=== PATIENT | male | born 1945 | race Caucasian/White ===

== ENCOUNTER → 2016-08-13 | Outpatient (CLI) | payer MEDICARE | END | disposition home or self-care (01) | LOC: LABPAT 15:11 | PROVIDERS: ATTEND Orthopaedic Surgery | DX: Z01.818 Encounter for other preprocedural examination (principal) | CPT/HCPCS: 86850; 86900; 86901; 87070 ==

== ENCOUNTER 2016-08-21 05:53 | Inpatient (IN) | payer MEDICARE ==
[~2016-08-21 05:53] MED LIST: ACETAMINOPHEN TAB 500 MG TAB PO ONE; DEXAMETHASONE SOD PHOSPHATE 10 MG/ML 1 ML VIAL IV ONE; HYDROmorphone 1 MG/ML 1 ML SYRINGE IVP PRN; LACTATED RINGERS 1,000 ML IV SCH; LIDOCAINE 1% 20 ML VIAL (10MG/ML) FOR IV START INTRADERMA PRN; MELOXICAM 7.5 MG TAB PO ONE; MIDAZOLAM 2 MG/2 ML VIAL IV PRN; ONDANSETRON 4 MG/2 ML VIAL IVP ONE; SCOPOLAMINE 1.5MG/72HR PATCH TRANSDERM ONE; TRANEXAMIC ACID 1,000 MG in SODIUM CHLORIDE 0.9% 100 ML IVPB ONE; ceFAZolin 2 GM in SODIUM CHLORIDE 0.9% 100 ML IVPB ONE
[2016-08-21] MEDS ORDERED: PROPOFOL 10 MG/ML 20 ML VIAL IV ONE (07:20)
[2016-08-21] MEDS ORDERED: SODIUM CHLORIDE 0.9% IRRIG 1,000 ML BTL IRRIGATION ONE (07:20)
[2016-08-21] MEDS ORDERED: PHENYLEPHRINE-0.9% NACL SYG 1 MG/10 ML SYRINGE ONE (07:20)
[2016-08-21] MEDS ORDERED: TRANEXAMIC ACID 1,000 MG/10 ML VIAL ONE (07:20)
[2016-08-21] MEDS ORDERED: HEPARIN SODIUM,PORCINE 10,000 UNIT/ML 1 ML VIAL ONE (07:20)
[2016-08-21] MEDS ORDERED: fentaNYL (PF) 50 MCG/ML 2 ML AMP ONE (07:20)
[2016-08-21] MEDS ORDERED: MIDAZOLAM 2 MG/2 ML VIAL ONE (07:20)
[2016-08-21] MEDS ORDERED: SODIUM CHLORIDE 0.9% 100 ML BAG ONE (07:20)
[2016-08-21] MEDS ORDERED: ceFAZolin 3,000 MG in SODIUM CHLORIDE 0.9% IRRIGATIO 3,000 ML IRRIGATION ONE (07:26)
[2016-08-21] MEDS: ROPIVACAINE 246.25 MG, EPINEPHrine 0.5 MG, KETOROLAC 30 MG, cloNIDine HCL/PF 80 MCG, WA... MISCELLANE ONE ×10 (07:56→08:49)
[2016-08-21] MEDS ORDERED: LACTATED RINGERS 1,000 ML IV ONE (08:00)
--- NOTE | 2016-08-21 09:03 | FL ---
Fluoroscopy History: Left total hip 15 seconds of fluoroscopic time and 3 films are submited for Left hip replacement.
--- NOTE | 2016-08-21 09:16 | P.OP ---
Date of Procedure: 08/21/16 Preoperative Diagnosis: Severe osteoarthritis left hip Postoperative Diagnosis: Severe osteoarthritis left hip Procedure(s) Performed: Left total hip arthroplasty with a direct anterior approach Implants: Mansfield and nephew Polarstem size 6 standard [employer]hew R3, 3 hole acetabular shell, 54 mm [employer]hew reflection 6.5 mm cancellus screw, 20 mm 2 [employer]hew R3, XLPE 20 acetabular liner [employer]hew Oxinium femoral head 36 m, +0 All components were press-fit. The articulation is ceramic on polyethylene. Anesthesia: spinal Surgeon: Yair Stern General I Farmworker #1: Maria Dolores Marin Estimated Blood Loss (ml): 250 (130 mL returned with Cell Saver) Pathology: other (Femoral head) Condition: stable Disposition: PACU Indications for Procedure: After failure of conservative treatment we discussed the surgical and nonsurgical treatment options at length. Patient wishes to proceed with a total hip arthroplasty with a direct anterior approach. Complications specific to this procedure were discussed at length, including but not limited to infection, leg length discrepancy, dislocation, and nerve injury. Patient is aware of all these complications and informed consent was obtained Operative Findings: The operative findings consistent with severe osteoarthritis of the left hip Description of Procedure: Patient was seen and evaluated in the preoperative area, consent was reviewed, and the surgical site was marked with a skin marker. Patient was then brought to the operating room and given prophylactic antibiotics intravenously. 1 g of Tranexamic acid was also given. A spinal anesthetic was administered by the anesthesia department. The patient was then placed on the hana table with the bony prominences well-padded. The hip area was then prepped and draped in usual sterile fashion. A universal timeout was then performed, which confirmed the patient's name, surgical site, ALLERGIES, and procedure being performed. Next the incision site was located at 1 cm distal and 1 cm lateral to the anterior superior iliac spine. The skin and subcutaneous tissues were sharply incised. Incision was carefully dissected down to the fascia overlying the tensor fascia dimple muscle. This fascia was then incised in line with the incision. Next, using blunt finger dissection, the tensor fascia dimple muscle was dissected off its investing fascia. The muscle was then carefully retracted laterally with a cobra retractor over the lateral neck of the femur. Next, the circumflex vessels were identified and cauterized using the AquaMantis device. The anterior hip capsule was then exposed. The capsule was then opened and an inverted T fashion. Retention sutures were placed in the inferior arms of the capsule. Cobra retractors were then placed intracapsularly. The proximal femur was then visualized. The femoral neck was then osteotomized appropriate level above the lesser trochanter. Small amount of traction was placed with the hand table. A small wedge of bone was then removed from the remaining femoral head. Next, using a corkscrew femoral head was easily removed from the acetabulum. On gross visual inspection, the femoral head had complete loss of articular cartilage in multiple periarticular osteophytes. Attention was then turned to the acetabulum. the acetabulum was exposed and any remaining labrum was excised. Sequential reaming of the acetabulum was performed using fluoroscopic guidance. When the appropriate size was reached, a trial was then placed. The position and fit of the trial was checked with fluoroscopy. The trial was then removed. Then, using fluoroscopic guidance, the final implant was impacted at 20 of anteversion and 40 of abduction, and fully seated in the acetabulum. 2 screws were then placed in the acetabulum. Again fluoroscopy was used to check position of the screws. Next, the liner was then impacted, with a 20 elevated liner located in the anterior superior quadrant. Component locking was confirmed. Attention was then directed to the femur. With the aid of the Megan table, the femur was externally rotated to approximately 130, extended, and abducted under the opposite leg. A side hook was then placed under the proximal femur, and the side hook elevator was used to elevate the proximal femur. Retractors were then placed. A capsular release was performed, as well as a release of the conjoined tendon, which afforded excellent visualization of the proximal femur. Next, a box osteotome was used to lateralize the proximal femur. A material handling supervisor was then used to locate the femoral canal. Sequential broaching was then performed with appropriate size which afforded excellent fixation in the proximal femur. The calcar was then planed. A trial was then placed with appropriate head and neck, and the hip was gently reduced with the aid of the Megan table. Fluoroscopy was then used to check position of the components, as well as to ensure equal leg lengths. The hip was then gently dislocated and the trials were then removed. Final implants were then impacted and the hip was again reduced. Final fluoroscopic x-rays confirmed that the components were in anatomic position, as well as equal leg lengths. The hip was also taken through range of motion, and found to be stable. The hip was then copiously irrigated with antibiotic solution with pulsatile lavage. The hip was then irrigated with Irrisept solution. The soft tissues were then injected with ropivacaine solution. A second dose of 1 g of Tranexamic acid was given. the fascia was then closed with 2-0 strata fix suture. The subcutaneous tissue was closed with 3-0 Vicryl. The subcuticular tissue was closed with 30 strata fix suture. The skin was then closed with Dermabond tape. The patient was then transferred to the recovery room in stable condition. The Asst. Maria Dolores Marin was required due to the complexity of surgery, and the need for skilled surgical supplies sterilizer for positioning, draping, exposure, retraction, and closure of the wound.and closure of the wound.
[2016-08-21] MEDS ORDERED: ONDANSETRON 4 MG/2 ML VIAL IVP PRN (09:23)
[2016-08-21] MEDS ORDERED: HYDROcodone/APAP 5-325MG 1 EACH TAB PO PRN (09:23)
[2016-08-21] MEDS ORDERED: HYDROmorphone 1 MG/ML 1 ML SYRINGE IVP PRN ×3 (09:23)
[2016-08-21] MEDS ORDERED: NALOXONE 0.4 MG/ML 1 ML VIAL IV PRN (09:23)
[2016-08-21] MEDS ORDERED: DIAZEPAM 5 MG TAB PO PRN ×2 (09:23)
[2016-08-21] MEDS ORDERED: hydrOXYzine PAMOATE 25 MG CAP PO PRN (09:23)
[2016-08-21] MEDS ORDERED: MAGNESIUM HYDROXIDE 2,400 MG/10 ML CUP PO PRN (09:23)
--- NOTE | 2016-08-21 09:42 | XR ---
EXAMINATION TYPE: XR Hip Limited LT DATE OF EXAM: 08/21/2016 9:38 AM CLINICAL HISTORY: Postoperative evaluation TECHNIQUE: Single portable view of the left hip was submitted. FINDINGS: Noted are changes of total hip arthroplasty with femoral and acetabular components appearin g well seated. Alignment is anatomic. Postsurgical soft tissue changes are evident. IMPRESSION: Satisfactory postoperative alignment
[2016-08-21] MEDS ORDERED: ALBUMIN HUMAN 5% 250 ML in EMPTY BAG 1 BAG IVPB STA (09:54)
[2016-08-21] MEDS: SODIUM CHLORIDE 0.9% 1,000 ML IV SCH ×2 (12:23→21:44)
[2016-08-21] MEDS: ceFAZolin 2 GM in SODIUM CHLORIDE 0.9% 100 ML IVPB SCH (15:51)
--- NOTE | 2016-08-21 18:18 | CONS ---
DATE OF CONSULTATION: 08/21/2016 REASON FOR CONSULTATION: Medical management requested by Dr. Stern. HOSPITAL COURSE: This pleasant 70-year-old patient of Dr. Guzman has undergone a left total hip arthroplasty. Patient in chronic stable medical conditions include hyperlipidemia, benign prostatic hypertrophy, and basal cell skin cancer in the past. Post procedure patient is comfortable. No chest pain, shortness of breath, nausea, vomiting, and no cardiac history. REVIEW OF SYSTEMS: CONSTITUTIONAL: None. HEENT: None. RESPIRATORY: None. CARDIOVASCULAR: None. GASTROINTESTINAL: None. GENITOURINARY: Benign prostatic hypertrophy symptoms. DERMATOLOGICAL: None. HEMATOLOGICAL: None. LYMPHATIC: None. PSYCHIATRY: None. NEUROLOGICAL: None. Past medical history of hyperlipidemia, prostate disorder, hyperlipidemia, basal cell cancer, osteoarthritis. PAST SURGICAL HISTORY: Bilateral shoulder surgery. 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 Never smoked. Alcohol occasionally. FAMILY HISTORY: Mother had multiple strokes. HOME MEDICATIONS: 1. Saw [place] 500 mg p.o. daily. 2. Fish oil 1000 mg p.o. daily. 3. Glucosamine chondroitin 1 tablet p.o. daily. 4. [place]-3 flaxseed oil 1 tablet p.o. daily. 5. Cinnamon 500 mg p.o. daily. 6. Vitamin D3 400 units p.o. daily. 7. Aspirin 81 mg p.o. daily. 8. Vitamin C 1000 mg p.o. daily. ALLERGIES: None. On examination, temperature 97.7, pulse 59, respirations 16, blood pressure 101/61, pulse ox 98% on room air. GENERAL APPEARANCE: Well built, BMI of 30.4, sitting up, comfortable. EYES: Pupils equal. Conjunctiva normal. HEENT: External appearance of nose and ears normal. NECK: JVD not raised. Mass not palpable. RESPIRATORY: Effort normal. LUNGS: Clear. CARDIOVASCULAR: First and second sounds normal. No edema. ABDOMEN: Soft. Liver and spleen not palpable. LYMPHATIC: No lymph node in the neck or axillae. PSYCHIATRY: Alert and oriented x3. Mood and affect normal. INVESTIGATIONS: No blood work from today. ASSESSMENT: 1. Left total hip arthroplasty. 2. Hyperlipidemia. 3. Benign prostatic hypertrophy. 4. Obesity, body mass index of 30.4. PLAN: Home medications are resumed. For DVT prophylaxis the patient is on aspirin lasted to ( ) b.i.d. Pain control is present. Patient should see a dietitian for weight loss or follow with family doctor. Care was discussed with the patient. Thank you, Dr. Stern.
[2016-08-21] MEDS: ASPIRIN 325 MG TAB PO SCH (20:20)
[2016-08-21] MEDS ORDERED: SENNOSIDES-DOCUSATE SODIUM 1 EACH TAB PO SCH (21:00)
[2016-08-22] MEDS: ceFAZolin 2 GM in SODIUM CHLORIDE 0.9% 100 ML IVPB SCH ×2
[2016-08-22 03:00] VITALS: TEMP 98.5
[2016-08-22 07:28] LABS: Basophils % (A) 0 %; CH 31.5; CHCM 33.9; Eosinophils % (A) 0 %; HCT 38.7 % (39.0-53.0); HDW 2.65; HGB 12.8 gm/dL (13.0-17.5); Luc # (Auto) 0.21; Luc % (Auto) 3; Lymphocytes # (A) 1.4 k/uL (1.0-4.8); Lymphocytes % (A) 19 %; MCH 30.8 pg (25.0-35.0); MCHC 33.1 g/dL (31.0-37.0); MCV 93.3 fL (80.0-100.0); Mean Platelet Volume 7.9; Monocytes # (A) 0.6 k/uL (0-1.0); Monocytes % (A) 8 %; Neutrophils # (A) 5.1 k/uL (1.3-7.7); Neutrophils % (A) 70 %; RBC 4.15 m/uL (4.30-5.90); RDW 13.2 % (11.5-15.5); WBC 7.3 k/uL (3.8-10.6); WBC (Perox) 7.77
[2016-08-22] MEDS: ASPIRIN 325 MG TAB PO SCH (08:04)
[2016-08-22] MEDS: HYDROcodone/APAP 5-325MG 1 EACH TAB PO PRN ×2 (08:05→13:24)
[2016-08-22 08:08] VITALS: BP 101/64; PULSE 93; RESP 18
[2016-08-22] MEDS ORDERED: MELOXICAM 7.5 MG TAB PO SCH (09:00)
--- NOTE | 2016-08-22 09:40 | P.DS ---
Providers Date of admission: 08/21/16 05:53 Expected date of discharge: 08/22/16 Attending physician: Yair Stern Consults: 08/21/16 09:23 Consult Physician Routine Consulting Provider: Ronal Guzman Consult Reason/Comments: medical management Do you want consulting provider notified?: Yes 08/21/16 10:33 Consult Physician Routine Consulting Provider: Jas Butler Consult Reason/Comments: medical managment Do you want consulting provider notified?: Yes Primary care physician: Ronal Guzman - Discharge Diagnosis(es) (1) Primary localized osteoarthritis of left hip Current Visit: Yes Status: Acute (2) Status post left hip replacement Current Visit: Yes Status: Acute Hospital Course: This is a pleasant 70-year-old gentleman who is status post left total hip arthroplasty. The patient was last seen in our office with known history of osteoarthritis of the left hip. After discussion consideration the patient elected to proceed with left total hip arthroplasty. The patient was seen preoperatively medically cleared for surgery by his primary care physician. The patient was seen and evaluated at bedside this morning. His pain is well- controlled. He's been up walking with physical therapy. He has no complaints this time. No lightheadedness or shortness of breath. He does not appear in acute distress. He is alert and orientated 3. Vital signs are stable. Dressing is clean dry and intact. Thigh and calf are soft and nontender. He has sustained dorsiflexion plantar flexion extensor hallux longus. Sensation and circulatory status is intact. The patient is alert medically stable for discharge to home today with home care if he does well with therapy this afternoon. Pertinent Studies: Laboratory Tests 08/22/16 07:10 WBC 7.3 RBC 4.15 L Hgb 12.8 L Hct 38.7 L MCV 93.3 MCH 30.8 MCHC 33.1 RDW 13.2 Plt Count 163 Neutrophils % 70 Lymphocytes % 19 Monocytes % 8 Eosinophils % 0 Basophils % 0 Neutrophils # 5.1 Lymphocytes # 1.4 Monocytes # 0.6 Eosinophils # 0.0 Basophils # 0.0 Patient Condition at Discharge: Good Plan - Discharge Summary New Discharge Prescriptions: Aspirin EC [Ecotrin] 325 mg PO BID #60 tablet. Hydrocodone/Acetaminophen [[place] 5-325] 1 - 2 each PO Q6HR PRN #90 tab PRN Reason: Pain Sennosides-Docusate Sodium [Senokot-S] 2 tab PO DAILY #60 tablet Discharge Medication List Ascorbic Acid [Vitamin C] 1,000 mg PO DAILY 08/13/16 [History] Aspirin [Adult Low Dose Aspirin EC] 81 mg PO DAILY 08/13/16 [History] Cholecalciferol [Vitamin D3] 400 unit PO DAILY 08/13/16 [History] Cinnamon Bark [Cinnamon] 500 mg PO DAILY 08/13/16 [History] Flaxseed Oil [[place]-3 Flaxseed Oil] 1 tab PO DAILY 08/13/16 [History] Glucosamine-Chondr 500-400Mg 1 tab PO DAILY 08/13/16 [History] [place]-3 Fatty Acids/Fish Oil [Fish Oil 1,000 mg Softgel] 1 cap PO DAILY [History] Saw [place] 500 mg PO DAILY 08/13/16 [History] Aspirin EC [Ecotrin] 325 mg PO BID #60 tablet. 08/22/16 [Rx] Hydrocodone/Acetaminophen [[place] 5-325] 1 - 2 each PO Q6HR PRN #90 tab 08/22/16 [Rx] Sennosides-Docusate Sodium [Senokot-S] 2 tab PO DAILY #60 tablet 08/22/16 [Rx] Follow up Appointment(s)/Referral(s): Yair Stern DO [Doctor of Osteopathic Medicine] - 2 Weeks Activity/Diet/Wound Care/Special Instructions: Weightbearing as tolerated with walker Daily dressing changes Keep incision clean and dry Hold 81 mg aspirin while taking Aspirin 325 mg twice a day. [facility] with questions or concerns [phone] Discharge Disposition: HOME WITH HOME HEALTH SERVICES
[2016-08-22] MEDS: SODIUM CHLORIDE 0.9% 1,000 ML IV SCH (13:25)
--- NOTE | 2016-08-22 20:16 | PN ---
DATE OF SERVICE: 08/22/2016 PRESENTING COMPLAINT: Hip surgery. INTERVAL HISTORY: Patient is status post left hip surgery, seen by me earlier today, doing well, sitting up, comfortable. No chest pain. Shortness of breath. No nausea or vomiting. Did work with physical therapy. Review of systems done for constitutional, cardiovascular, GI, pulmonary; relevant findings as above. Current medications are reviewed. On examination, temperature 98.5, pulse 93, respiratory rate 18, blood pressure 101/64, pulse ox 93% on room air. GENERAL APPEARANCE: Sitting up, comfortable. Eyes: Pupils equal. Conjunctivae normal. NECK: JVD not raised. Mass not palpable. RESPIRATORY: Effort normal. Lungs are clear. CARDIOVASCULAR: First and second sounds normal. No edema. ABDOMEN: Soft, nontender. Liver and spleen not palpable. PSYCHIATRY: Alert and oriented x3. Mood and affect normal. INVESTIGATIONS: White count 7.3, hemoglobin 12.8. ASSESSMENT: 1. Left total hip arthroplasty. 2. Hyperlipidemia. 3. Benign prostatic hypertrophy. 4. Obesity, body mass index of 38.4. PLAN: Continue medications and treatment plan. If discharged, follow-up with family doctor next week. Thank you Dr. Stern.
== END 2016-08-22 15:13 | disposition home health service (06) | DRG 470 ==
LOC: 2ORMAIN 05:53 → 3SUR 09:20
PROVIDERS: ADMIT Orthopaedic Surgery; ATTEND Orthopaedic Surgery
PROC: 0SRB04A Replacement of Left Hip Joint with Ceramic on Polyethylene Synthetic Substitute, Uncemented, Open Approach (ICD-10-PCS; principal; 2016-08-21 07:30)
DX: M16.12 Unilateral primary osteoarthritis, left hip (principal); E78.5 Hyperlipidemia, unspecified; Z79.82 Long term (current) use of aspirin; Z79.899 Other long term (current) drug therapy; N40.0 Benign prostatic hyperplasia without lower urinary tract symptoms; Z85.828 Personal history of other malignant neoplasm of skin
CPT/HCPCS: 73501; 85025; 86850; 86891; 86900; 86901; 88300; 94760

== ENCOUNTER 2022-07-03 10:21 | Observation (INO) | payer MEDICARE ==
[2022-07-03] MEDS ORDERED: SODIUM CHLORIDE 0.9% 1,000 ML IV STA (11:04)
[2022-07-03] MEDS ORDERED: HEPARIN SODIUM 1,000 UN/ML (10ML VL) IV PRN (11:18)
[2022-07-03] MEDS ORDERED: HEPARIN SODIUM 1,000 UN/ML (10ML VL) IV ONE (11:18)
[2022-07-03 11:40] LABS: Basophils # (A) 0.1 k/uL (0-0.2); Basophils % (A) 1 %; Eosinophils # (A) 0.3 k/uL (0-0.7); Eosinophils % (A) 5 %; HCT 51.6 % (39.0-53.0); Lymphocytes # (A) 1.6 k/uL (1.0-4.8); Lymphocytes % (A) 30 %; MCH 32.9 pg (25.0-35.0); MCHC 34.8 g/dL (31.0-37.0); MCV 94.5 fL (80.0-100.0); Mean Platelet Volume 8.3; Monocytes # (A) 0.3 k/uL (0-1.0); Monocytes % (A) 6 %; Neutrophils % (A) 56 %; Platelet Count 174 k/uL (150-450); RBC 5.46 m/uL (4.30-5.90); RDW 12.4 % (11.5-15.5); WBC 5.3 k/uL (3.8-10.6)
[2022-07-03 11:53] LABS: Albumin 4.7 g/dL (3.5-5.0); Calcium 9.4 mg/dL (8.4-10.2); Magnesium 2.2 mg/dL (1.6-2.3); Potassium 4.7 mmol/L (3.5-5.1); Total Bilirubin 1.7 mg/dL (0.2-1.3)
--- NOTE | 2022-07-03 12:00 | XR ---
EXAMINATION TYPE: XR chest 2V DATE OF EXAM: 07/03/2022 COMPARISON: None INDICATION: Dysrhythmia TECHNIQUE: Frontal and lateral views of the chest are obtained. FINDINGS: The heart size is normal. The pulmonary vasculature is normal. There is a 2 cm nodular oval density within the left lower lung field. Pleural plaque and lung nodule or within the differential. This may be summation density with a nipple shadow. What appears to be n ipple shadows on the right. Consider repeat study with nipple markers.. IMPRESSION: 1. Possible left lung base nodule. Repeat chest study with nipple markers is recommended.
[2022-07-03 12:02] LABS: Partial Thromboplastin Time 22.9 sec (22.0-30.0); Prothrombin Time 10.4 sec (9.0-12.0)
[2022-07-03 12:15] LABS: Appearance,Urine Clear (Clear); Bilirubin,Urine Negative (Negative); Blood,Urine Negative (Negative); Color,Urine Yellow; Glucose,Urine (UA) Negative (Negative); Ketones,Urine Negative (Negative); Leukocyte Esterase,Urine Negative (Negative); Nitrite,Urine Negative (Negative); Protein,Urine Negative (Negative); Specific Gravity,Urine 1.019 (1.001-1.035); Urobilinogen,Urine <2.0 mg/dL (<2.0)
[2022-07-03] MEDS: HEPARIN SOD,PORK IN 0.45% NACL 25,000 UNIT in 0.45% NACL 1 250ML.BAG IV SCH (12:35)
[2022-07-03] MEDS ORDERED: NALOXONE 0.4 MG/ML 1 ML VIAL IV PRN (12:59)
--- NOTE | 2022-07-03 12:59 | ED ---
General Adult HPI - General Chief complaint: Arrhythmia/Palpitations Stated complaint: abn EKG - sent by pcp Time Seen by Provider: 07/03/22 10:50 Source: patient Mode of arrival: ambulatory Limitations: no limitations - History of Present Illness Initial comments: Patient is a 76-year-old male with history of hyperlipidemia presenting from his PCPs office for abnormal EKG. Patient informed his PCP that recently he has been having issues with centralized chest pain, shortness of breath, fatigue, and tingling in the left hand after exertion such as yard work. EKG in the office showed atrial flutter, patient has no history of atrial flutter and is not on anticoagulation. Patient states right now he feels well, he is having no symptoms. No current chest pain or difficulty breathing. No palpitations. No fever or chills. No nausea, vomiting, abdominal pain. No headache, vision or hearing changes, dizziness. No neck pain or stiffness. - Related Data Home Medications Medication Instructions Recorded Confirmed Ascorbic Acid [Vitamin C] 1,000 mg PO DAILY 08/13/16 07/03/22 Aspirin [Adult Low Dose Aspirin EC] 81 mg PO DAILY 08/13/16 07/03/22 Cholecalciferol [Vitamin D3] 400 unit PO DAILY 08/13/16 07/03/22 Glucosamine-Chondr 500-400Mg 1 tab PO DAILY 08/13/16 07/03/22 [place]-3 Fatty Acids/Fish Oil [Fish 1 cap PO DAILY 08/13/16 07/03/22 Oil 1,000 mg Softgel] Saw [place] 500 mg PO DAILY 08/13/16 07/03/22 Allergies Allergy/AdvReac Type Severity Reaction Status Date / Time No Known Allergies Allergy Verified 07/03/22 12:29 Review of Systems ROS Statement: Those systems with pertinent positive or pertinent negative responses have been documented in the HPI. ROS Other: All systems not noted in ROS Statement are negative. Past Medical History Past Medical History: Cancer, Hyperlipidemia, Prostate Disorder Additional Past Medical History / Comment(s): BASAL CELL skin cancer. STATES HE HAD A STAPH INFECTION IN HIS CLAVICLE AREA (ETIOLOGY UNKNOWN), TOOK IV ANTIBIOTICS TO CLEAR UP, PATIENT DID NOT THINK IT WAS MRSA. History of Any Multi-Drug Resistant Organisms: None Reported Past Surgical History: Joint Replacement, Orthopedic Surgery Additional Past Surgical History / Comment(s): 08/21/16 total L hip arthroplasty. Other surgical hx: BILATERAL SHOULDER SURGERY. Past Anesthesia/Blood Transfusion Reactions: Motion Sickness Past Psychological History: No Psychological Hx Reported Smoking Status: Never smoker Past Alcohol Use History: Occasional Past Drug Use History: None Reported - Past Family History Mother Family Medical History: CVA/TIA Additional Family Medical History / Comment(s): Mother had several CVA's. She d ied at the age of 87yrs. Father Family Medical History: Cancer Additional Family Medical History / Comment(s): Father had prostate cancer. He of "old age" at the age of 86yrs. General Exam Limitations: no limitations General appearance: alert, in no apparent distress Head exam: Present: atraumatic, normocephalic, normal inspection Eye exam: Present: normal appearance Neck exam: Present: normal inspection, full ROM Respiratory exam: Present: normal lung sounds bilaterally. Absent: respiratory distress, wheezes, rales, rhonchi, stridor Cardiovascular Exam: Present: regular rate, irregular rhythm, normal heart sounds. Absent: systolic murmur, diastolic murmur, rubs, gallop, clicks Neurological exam: Present: alert, oriented X3, CN II-XII intact Psychiatric exam: Present: normal affect, normal mood Skin exam: Present: warm, dry, intact, normal color. Absent: rash Course Vital Signs 07/03/22 07/03/22 07/03/22 10:25 15:00 17:26 Temperature 99.0 F Pulse Rate 77 66 Pulse Rate [ 75 Radiation Therapy Technologist ] Respiratory 18 18 17 Rate Blood Pressure 129/95 117/89 Blood Pressure 116/88 [Left Arm] O2 Sat by Pulse 99 100 97 Oximetry 07/03/22 07/03/22 17:29 17:41 Temperature 97.4 F L Pulse Rate Pulse Rate [ 75 Radiation Therapy Technologist ] Respiratory 17 Rate Blood Pressure Blood Pressure 116/88 [Left Arm] O2 Sat by Pulse 97 Oximetry Medical Decision Making - Medical Decision Making Patient is a 76-year-old male presenting from his PCPs office for evaluation of abnormal EKG. Patient discloses PCP that he has had increased fatigue and decreased endurance with regular ADLs. Physical examination is unremarkable. EKG shows new onset atrial flutter, patient is started on heparin. CBC shows no leukocytosis or anemia. Coags are WNL. Troponin is less than 0.012. Electrolytes are WNL. UA is negative for any acute process. Chest x-ray shows possible left lung base nodule repeat study is advised with nipple markers. I discussed this case with the sound physician on-call who accepted admission. Patient is agreeable with this plan. I discussed this case with my attending Dr. Burnham. - Lab Data Result diagrams: 07/03/22 11:07/03/22 11: Lab Results 07/03/22 07/03/22 07/03/22 Range/Units 11: 11: 11: WBC 5.3 (3.8-10.6) k/uL RBC 5.46 (4.30-5.90) m/uL Hgb 18.0 H (13.0-17.5) gm/dL Hct 51.6 (39.0-53.0) % MCV 94.5 (80.0-100.0) fL MCH 32.9 (25.0-35.0) pg MCHC 34.8 (31.0-37.0) g/dL RDW 12.4 (11.5-15.5) % Plt Count 174 (150-450) k/uL MPV 8.3 Neutrophils % 56 % Lymphocytes % 30 % Monocytes % 6 % Eosinophils % 5 % Basophils % 1 % Neutrophils # 3.0 (1.3-7.7) k/uL Lymphocytes # 1.6 (1.0-4.8) k/uL Monocytes # 0.3 (0-1.0) k/uL Eosinophils # 0.3 (0-0.7) k/uL Basophils # 0.1 (0-0.2) k/uL PT 10.4 (9.0-12.0) sec INR 1.0 (<1.2) APTT 22.9 (22.0-30.0) sec Sodium (137-145) mmol/L Potassium (3.5-5.1) mmol/L Chloride (98-107) mmol/L Carbon Dioxide (22-30) mmol/L Anion Gap mmol/L BUN (9-20) mg/dL Creatinine (0.66-1.25) mg/dL Est GFR (CKD-EPI)AfAm (>60 ml/min/1.73 sqM) Est GFR (CKD-EPI)NonAf (>60 ml/min/1.73 sqM) Glucose (74-99) mg/dL Calcium (8.4-10.2) mg/dL Magnesium (1.6-2.3) mg/dL Total Bilirubin (0.2-1.3) mg/dL AST (17-59) U/L ALT (4-49) U/L Alkaline Phosphatase (38-126) U/L Troponin I (0.000-0.034) ng/mL Total Protein (6.3-8.2) g/dL Albumin (3.5-5.0) g/dL TSH (0.465-4.680) mIU/L Urine Color Yellow Urine Appearance Clear (Clear) Urine pH 5.0 (5.0-8.0) Ur Specific [place] 1.019 (1.001-1.035) Urine Protein Negative (Negative) Urine Glucose (UA) Negative (Negative) Urine Ketones Negative (Negative) Urine Blood Negative (Negative) Urine Nitrite Negative (Negative) Urine Bilirubin Negative (Negative) Urine Urobilinogen <2.0 (<2.0) mg/dL Ur Leukocyte Esterase Negative (Negative) 07/03/22 07/03/22 Range/Units 11:22 11:22 WBC (3.8-10.6) k/uL RBC (4.30-5.90) m/uL Hgb (13.0-17.5) gm/dL Hct (39.0-53.0) % MCV (80.0-100.0) fL MCH (25.0-35.0) pg MCHC (31.0-37.0) g/dL RDW (11.5-15.5) % Plt Count (150-450) k/uL MPV Neutrophils % % Lymphocytes % % Monocytes % % Eosinophils % % Basophils % % Neutrophils # (1.3-7.7) k/uL Lymphocytes # (1.0-4.8) k/uL Monocytes # (0-1.0) k/uL Eosinophils # (0-0.7) k/uL Basophils # (0-0.2) k/uL PT (9.0-12.0) sec INR (<1.2) APTT (22.0-30.0) sec Sodium 141 (137-145) mmol/L Potassium 4.7 (3.5-5.1) mmol/L Chloride 106 (98-107) mmol/L Carbon Dioxide 27 (22-30) mmol/L Anion Gap 8 mmol/L BUN 22 H (9-20) mg/dL Creatinine 0.98 (0.66-1.25) mg/dL Est GFR (CKD-EPI)AfAm 88 (>60 ml/min/1.73 sqM) Est GFR (CKD-EPI)NonAf 76 (>60 ml/min/1.73 sqM) Glucose 95 (74-99) mg/dL Calcium 9.4 (8.4-10.2) mg/dL Magnesium 2.2 (1.6-2.3) mg/dL Total Bilirubin 1.7 H (0.2-1.3) mg/dL AST 32 (17-59) U/L ALT 30 (4-49) U/L Alkaline Phosphatase 76 (38-126) U/L Troponin I <0.012 (0.000-0.034) ng/mL Total Protein 7.0 (6.3-8.2) g/dL Albumin 4.7 (3.5-5.0) g/dL TSH 4.120 (0.465-4.680) mIU/L Urine Color Urine Appearance (Clear) Urine pH (5.0-8.0) Ur Specific [place] (1.001-1.035) Urine Protein (Negative) Urine Glucose (UA) (Negative) Urine Ketones (Negative) Urine Blood (Negative) Urine Nitrite (Negative) Urine Bilirubin (Negative) Urine Urobilinogen (<2.0) mg/dL Ur Leukocyte Esterase (Negative) Disposition Clinical Impression: Atrial flutter, Chest pain Disposition: ADMITTED IP TO THIS [facility] Condition: Fair Time of Disposition: 12:59 Decision to Admit Reason: Admit from EC Decision Date: 07/03/22 Decision Time: 12:59
--- NOTE | 2022-07-03 14:36 | P.HPIM ---
History of Present Illness H&P Date: 07/03/22 History of Presenting Illness: Patient is a very pleasant 76-year-old male with a past medical history of hyperlipidemia diet controlled and basal cell skin cancer. He presented to the emergency department from his PCP office. Patient reports that he has recently found himself to have decreased endurance with normal activities of daily living. Patient reports he has been chocking up to getting older but states activities such as cutting the grass and raking leaves (in which he previously had no difficulties with) he has found himself having to stop to rest and catch his breath. He states in addition to this he has noticed occasional chest discomfort and tingling in his left hand. Patient reports he went to his PCPs office for further evaluation and an overall checkup. Patient reports after discussing this with his doctor in an EKG was completed he was directed to go to the hospital for further workup. Upon arrival to our hospital patient currently reports feeling "great" and denies currently experiencing any complaints or discomforts. He denies having any headache, lightheadedness, dizziness, chest pain, palpitations, shortness of breath, nausea, or experiencing any numbness/tingling/weakness/swelling in his extremities. Patient reports he is typically very active but lately he just has not had the energy. Upon arrival to the emergency department, patient underwent full evaluation. EKG was completed revealing atrial flutter with a controlled rate of 76 bpm. Patient denied history of atrial flutter or previously known arrhythmias. Vital signs were stable. CBC, coags, and CMP were unremarkable with the exception of slightly elevated hemoglobin of 18.0, BUN 22, and total bili of 1.7. Chest x-ray revealing possible left lung base nodule recommending repeat chest study with nipple markers for verification. Patient was started on heparin infusion and being admitted under our services with consultation to cardiology. Review of systems: Pertinent positives and negatives as discussed in HPI, a complete review of systems was performed and all other systems are negative. Physical exam: Vital signs reviewed and stable. General: Nontoxic, no distress and appears stated age. Derm: Skin warm and dry, normal coloration for ethnicity. Head: Atraumatic, normocephalic and symmetric. Eyes: EOMs intact, no lid lag, and anicteric sclera Mouth: no lip lesions, mucus membranes moist Cardiovascular: regular rate and rhythm with normal S1S2, no murmur, positive posterior tibial pulses bilaterally, and cap refill < 2 seconds. Lungs: Respirations even, regular, and unlabored on room air. Lungs CTA bilaterally, no rhonchi, no rales, no wheezing, and no accessory muscle usage. Abdominal: soft, nontender to palpation, no guarding, no appreciable organomegaly Ext: ROM intact. No gross muscle atrophy, no edema, no contractures Neuro: Speech clear, face symmetrical and CN II-XII grossly intact with no noted focal neuro deficits Psych: Alert and oriented to person, place, time, and situation. Appropriate and pleasant affect. Assessment and Plan of Care: New-onset atrial flutter Exertional dyspnea and fatigue Hyperlipidemia -Cardiology consulted, appreciate further recommendations -Telemetry monitoring -Troponin negative at less than 0.012. TSH 4.120. -Continue heparin infusion -Cardiac diet -Echocardiogram Abnormal imaging -Chest x-ray revealing possible left lung base nodule recommending repeat chest study with nipple markers for verification. -Order placed for repeat chest x-ray using nipple markers to rule out or confirm suspicions of lung nodule. The patient is admitted with an anticipated less than 2 midnight stay for evaluation of new onset atrial flutter CODE STATUS: Full code DVT prophylaxis: Heparin infusion Discussed with: Patient Anticipated discharge date: 1-[address]: Home A total of 44 minutes was spent on the care of this complex patient more than 50% of the time was spent in counseling and care coordination. I reviewed the documentation as provided by the ADIS above, who is the original author of this note. I agree with the documented assessment and plan, with the following changes: none Past Medical History Past Medical History: Cancer, Hyperlipidemia, Prostate Disorder Additional Past Medical History / Comment(s): BASAL CELL skin cancer. STATES HE HAD A STAPH INFECTION IN HIS CLAVICLE AREA (ETIOLOGY UNKNOWN), TOOK IV ANTIBIOTICS TO CLEAR UP, PATIENT DID NOT THINK IT WAS MRSA. History of Any Multi-Drug Resistant Organisms: None Reported Past Surgical History: Joint Replacement, Orthopedic Surgery Additional Past Surgical History / Comment(s): 08/21/16 total L hip arth roplasty. Other surgical hx: BILATERAL SHOULDER SURGERY. Past Anesthesia/Blood Transfusion Reactions: Motion Sickness Past Psychological History: No Psychological Hx Reported Smoking Status: Never smoker Past Alcohol Use History: Occasional Past Drug Use History: None Reported - Past Family History Mother Family Medical History: CVA/TIA Additional Family Medical History / Comment(s): Mother had several CVA's. She at the age of 87yrs. Father Family Medical History: Cancer Additional Family Medical History / Comment(s): Father had prostate cancer. He of "old age" at the age of 86yrs. Medications and Allergies Home Medications Medication Instructions Recorded Confirmed Type Ascorbic Acid [Vitamin C] 1,000 mg PO DAILY 08/13/16 07/03/22 History Aspirin [Adult Low Dose Aspirin EC] 81 mg PO DAILY 08/13/16 07/03/22 History Cholecalciferol [Vitamin D3 (10 400 unit PO DAILY 08/13/16 07/03/22 History Mcg = 400 Iu)] Glucosamine-Chondr 500-400Mg 1 tab PO DAILY 08/13/16 07/03/22 History [place]-3 Fatty Acids/Fish Oil [Fish 1 cap PO DAILY 08/13/16 07/03/22 History Oil 1,000 mg Softgel] Apixaban [Eliquis] 5 mg PO BID #60 tab 07/04/22 Rx Allergies Allergy/AdvReac Type Severity Reaction Status Date / Time No Known Allergies Allergy Verified 07/03/22 12:29 Physical Exam Vitals: Vital Signs Temp Pulse Resp BP Pulse Ox 07/03/22 10:25 99.0 F 77 18 129/95 99 Intake and Output 07/02/22 07/03/22 07/03/22 22:59 06:59 14:59 Other: Weight 90.718 kg Results CBC & Chem 7: 07/04/22 08:23 07/03/22 11:22 Labs: Abnormal Lab Results - Last 24 Hours (Table) 07/03/22 07/03/22 Range/Units 11:22 11: Hgb 18.0 H (13.0-17.5) gm/dL BUN 22 H (9-20) mg/dL Total Bilirubin 1.7 H (0.2-1.3) mg/dL
--- NOTE | 2022-07-03 17:18 | XR ---
EXAMINATION TYPE: XR chest 2V DATE OF EXAM: 07/03/2022 4:31 PM COMPARISON: Chest radiographs from same day TECHNIQUE: XR chest 2V Frontal and lateral views of the chest. CLINICAL INDICATION:Male, 76 years old with history of Repeat CXR with nipple markers, r/o lung nodul e; FINDINGS: Lungs/Pleura: There is no evidence of pleural effusion, focal consolidation, or pneumothorax. There are no new lung nodules present as the nipple markers are directly related to the prior lung opacitie s. Pulmonary vascularity: Unremarkable. Heart/mediastinum: Cardiomediastinal silhouette is unremarkable. Musculoskeletal: No acute osseous pathology. IMPRESSION: Nipple markers correlate with opacities seen on prior. No lung nodules.
[2022-07-03] MEDS: SODIUM CHLORIDE 0.9% 1,000 ML IV SCH (18:30)
[2022-07-03 22:04] VITALS: RESP 16
[2022-07-04] MEDS: SODIUM CHLORIDE 0.9% 1,000 ML IV SCH ×2 (06:27→15:57)
[2022-07-04 08:56] LABS: HCT 48.4 % (39.0-53.0); HGB 16.7 gm/dL (13.0-17.5); MCH 32.7 pg (25.0-35.0); MCHC 34.4 g/dL (31.0-37.0); MCV 94.9 fL (80.0-100.0); Mean Platelet Volume 8.7; Platelet Count 142 k/uL (150-450); RDW 12.9 % (11.5-15.5); WBC 5.9 k/uL (3.8-10.6)
[2022-07-04] MEDS ORDERED: ASPIRIN 81 MG PO SCH (09:00)
[2022-07-04 09:10] LABS: INR 1.1 (<1.2); Partial Thromboplastin Time 56.6 sec (22.0-30.0); Prothrombin Time 11.4 sec (9.0-12.0)
--- NOTE | 2022-07-04 10:58 | CONS ---
CONSULTATION CHIEF COMPLAINT: Exertional fatigue, tiredness, and shortness of breath. HISTORY OF PRESENT ILLNESS: This is a 76-year-old gentleman with no significant past medical history, who presented to the hospital with progressively worsening shortness of breath, fatigue and tiredness. He has been noticing this for the last several weeks. He also felt somewhat dizzy as a result. He came into the ER, where he was found to be in atrial flutter with controlled ventricular rate and had been admitted to hospital for the same. He does not have chest pain, leg edema, PND, or orthopnea. At the time of my evaluation this morning, he appears comfortable at rest. Three sets of cardiac enzymes have come back negative. Creatinine is normal at 0.9, hemoglobin is 18, platelet count is 174. There is no prior history of coronary artery disease or congestive heart failure. Coronavirus test is negative. I talked to patient at length about his condition, short and long-term prognosis and treatment options. I will start the patient on Eliquis. Obtain a 2D echo and consider JAVIER cardioversion after adequate anticoagulation. We should be able to discharge him home dated today. PAST MEDICAL HISTORY: Negative for hypertension, diabetes, dyslipidemia. MEDICATIONS: None. ALLERGIES: None. FAMILY HISTORY: Negative for premature coronary artery disease. SOCIAL HISTORY: Negative for current smoking, EtOH abuse, or drug abuse. 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 REVIEW OF SYSTEMS: 14 out of 14 review of systems has been performed, pertinent's are as documented. PHYSICAL EXAMINATION: GENERAL: He is comfortable at rest. VITAL SIGNS: Heart rate is 76 beats per minute. Blood pressure is 120/72, respiratory rate is 18, O2 saturation is 98% on room air. NECK: There is no jugular venous distention. Carotid upstroke is normal. There is no bruit. CHEST: Reveals good air entry bilaterally. HEART: Reveals first and second heart sounds, irregular rhythm. No murmur. ABDOMEN: Soft, nontender. EXTREMITIES: Did not reveal any edema. Peripheral pulses are felt. LABORATORY DATA: Labs are as described above. ASSESSMENT: Typical atrial flutter. PLAN: The patient's heart rate is fairly well controlled. I will anticoagulate him. Myocardial infarction had been ruled out. TSH is normal. He does not have any documented bradyarrhythmias. He will need cardioversion after adequate anticoagulation. I will review the echocardiogram that had been done. MMODL / IJN: [id number] /
[2022-07-04] MEDS ORDERED: APIXABAN 5 MG TAB PO SCH (12:15)
--- NOTE | 2022-07-04 14:40 | P.PN ---
Subjective Progress Note Date: 07/04/22 Hospital Course: Patient is a very pleasant 76-year-old male with a past medical history of hyperlipidemia diet controlled and basal cell skin cancer. He presented to the emergency department from his PCP office. Patient reports that he has recently found himself to have decreased endurance with normal activities of daily living. Patient reports he has been chocking it up to getting older but states activities such as cutting the grass and raking leaves (in which he previously had no difficulties with) he has found himself having to stop to rest and catch his breath. He states in addition to this he has noticed occasional chest discomfort and tingling in his left hand. Patient reports he went to his PCPs office for further evaluation and an overall checkup. Patient reports after discussing this with his doctor in an EKG was completed he was directed to go to the hospital for further workup. Upon arrival to our hospital patient currently reported feeling "great" and denied currently experiencing any complaints or discomforts. He denied having any headache, lightheadedness, dizziness, chest pain, palpitations, shortness of breath, nausea, or experiencing any numbness/tingling/weakness/swelling in his extremities. Patient reported he is typically very active but lately he just has not had the energy. Upon arrival to the emergency department, patient underwent full evaluation. EKG was completed revealing atrial flutter with a controlled rate of 76 bpm. Patient denied history of atrial flutter or previously known arrhythmias. Vital signs were stable. CBC, coags, and CMP were unremarkable with the exception of slightly elevated hemoglobin of 18.0, BUN 22, and total bili of 1.7. Chest x-ray revealing possible left lung base nodule recommending repeat chest study with nipple markers for verification. Patient was started on heparin infusion and being admitted under our services with consultation to cardiology. Patient was monitored overnight and troponins were trended all negative at less than 0.0123 draws. Patient remained free from any complaints or pain at this time. Pt has remained in atrial flutter. Physical exam: Vital signs reviewed and stable. General: Nontoxic, no distress and appears stated age. Derm: Skin warm and dry, normal coloration for ethnicity. Head: Atraumatic, normocephalic and symmetric. Eyes: EOMs intact, no lid lag, and anicteric sclera Mouth: no lip lesions, mucus membranes moist Cardiovascular: Irregularly irregular with normal S1S2, no murmur, positive posterior tibial pulses bilaterally, and cap refill < 2 seconds. Lungs: Respirations even, regular, and unlabored on room air. Lungs CTA bilaterally, no rhonchi, no rales, no wheezing, and no accessory muscle usage. Abdominal: soft, nontender to palpation, no guarding, no appreciable organomegaly Ext: ROM intact. No gross muscle atrophy, no edema, no contractures Neuro: Speech clear, face symmetrical and CN II-XII grossly intact with no noted focal neuro deficits Psych: Alert and oriented to person, place, time, and situation. Appropriate and pleasant affect. Assessment and Plan of Care: New-onset atrial flutter Exertional dyspnea and fatigue Hyperlipidemia -Cardiology consulted, appreciate further recommendations -Telemetry monitoring -Troponins negative at less than 0.012 3. TSH 4.120. -Heparin infusion discontinued and patient started on oral anticoagulant with Eliquis. -Cardiac diet -Echocardiogram pending Abnormal imaging, lung nodules ruled out after repeat imaging. -Chest x-ray revealing possible left lung base nodule recommending repeat chest study with nipple markers for verification. -Order placed for repeat chest x-ray using nipple markers to rule out or confirm suspicions of lung nodule. Repeat imaging reporting nipple markers correlate with opacities seen on prior, ruling out lung nodule. CODE STATUS: Full code DVT prophylaxis: Eliquis. Discussed with: Patient Anticipated discharge date: Discharge pending echocardiogram results. Anticipated discharge place: Home A total of 33 minutes was spent on the care of this complex patient more than 50% of the time was spent in counseling and care coordination. I reviewed the documentation as provided by the ADIS above, who is the original author of this note. I agree with the documented assessment and plan, with the following changes: none Objective - Vital Signs Vital signs: Vital Signs Temp 97.6 F 07/04/22 08:45 Pulse 73 07/04/22 08:45 Resp 16 07/04/22 08:45 BP 120/83 07/04/22 08:45 Pulse Ox 94 L 07/04/22 08:45 FiO2 Intake & Output 07/03/22 07/04/22 07/04/22 18:59 06:59 18:59 Intake Total 62.333 Balance 62.333 Weight 90.718 kg Intake: Intake, IV Titration 62.333 Amount Heparin Sod,Pork in 0.45% 62.333 NaCl 25,000 unit In 0.45 % NaCl 1 250ml.bag @ 11. 023 UNITS/KG/HR 10 mls/hr IV .Q24H NATALIA Rx#: [id number] Other: Voiding Method Toilet # Voids 1 2 - Labs CBC & Chem 7: 07/04/22 08:23 07/03/22 11:22 Labs: Abnormal Lab Results - Last 24 Hours (Table) 07/03/22 07/03/22 07/03/22 Range/Units 11: 11: 17:56 Hgb 18.0 H (13.0-17.5) gm/dL APTT 42.8 H (22.0-30.0) sec BUN 22 H (9-20) mg/dL Total Bilirubin 1.7 H (0.2-1.3) mg/dL 07/04/22 Range/Units 00:38 Hgb (13.0-17.5) gm/dL APTT 55.8 H (22.0-30.0) sec BUN (9-20) mg/dL Total Bilirubin (0.2-1.3) mg/dL
[2022-07-04 15:40] LABS: Eosinophils # (M) 0.18 k/uL (0-0.7); Lymphocytes # (M) 1.89 k/uL (1.0-4.8); Monocytes # (M) 0.41 k/uL (0-1.0); Neutrophils # (M) 3.42 k/uL (1.3-7.7); Neutrophils % (M) 58 %; Nucleated Red Blood Cells 0 /100 WBC (0-0); Total Cells Counted 100
[2022-07-04 15:41] LABS: RBC Morphology Normal
[2022-07-04] MEDS: HEPARIN SOD,PORK IN 0.45% NACL 25,000 UNIT in 0.45% NACL 1 250ML.BAG IV SCH (15:57)
--- NOTE | 2022-07-04 17:36 | P.DS ---
Providers Date of admission: 07/03/22 14:32 Expected date of discharge: 07/04/22 Attending physician: Enmanuel King MD Consults: 07/03/22 12:59 Consult Physician Urgent Consulting Provider: [facility] Reason/Comments: New-onset atrial flutter, chest pain Do you want consulting provider notified?: Yes Primary care physician: Cesar Armas [facility] Course: Discharge Diagnosis: New-onset atrial flutter Exertional dyspnea and fatigue Hyperlipidemia Abnormal imaging, lung nodule ruled out after repeat imaging. Hospital Course: Patient is a very pleasant 76-year-old male with a past medical history of hyperlipidemia diet controlled and basal cell skin cancer. He presented to the emergency department from his PCP office. Patient reports that he has recently found himself to have decreased endurance with normal activities of daily living. Patient reports he has been chocking it up to getting older but states activities such as cutting the grass and raking leaves (in which he previously had no difficulties with) he has found himself having to stop to rest and catch his breath. He states in addition to this he has noticed occasional chest discomfort and tingling in his left hand. Patient reports he went to his PCPs office for further evaluation and an overall checkup. Patient reports after discussing this with his doctor in an EKG was completed he was directed to go to the hospital for further workup. Upon arrival to our hospital patient currently reported feeling "great" and denied currently experiencing any complaints or discomforts. He denied having any headache, lightheadedness, dizziness, chest pain, palpitations, shortness of breath, nausea, or experiencing any numbness/tingling/weakness/swelling in his extremities. Patient reported he is typically very active but lately he just has not had the energy. Upon arrival to the emergency department, patient underwent full evaluation. EKG was completed revealing atrial flutter with a controlled rate of 76 bpm. Patient denied history of atrial flutter or previously known arrhythmias. Vital signs were stable. CBC, coags, and CMP were unremarkable with the exception of slightly elevated hemoglobin of 18.0, BUN 22, and total bili of 1.7. Chest x-ray revealing possible left lung base nodule recommending repeat chest study with nipple markers for verification. Patient was started on heparin infusion and being admitted under our services with consultation to cardiology. Patient was monitored overnight and troponins were trended all negative at less than 0.0123 draws. Patient remained free from any complaints or pain at this time. Pt has remained in atrial flutter. Echocardiogram was completed and pending results. Order placed for repeat chest x-ray using nipple markers to rule out or confirm suspicions of lung nodule. Repeat imaging reporting nipple markers correlate with opacities seen on prior, ruling out lung nodule. Patient remains free from any pain or complaints and is medically stable at this time. Patient requesting discharge and will be discharged home without echocardiogram results at this time. This was discussed with patient and patient was instructed that he will need to follow up outpatient with [facility] to review and discuss these results. Patient medically stable for discharge home at this time and follow up outpatient with PCP in 1-2 days and cardiology in 1 week. Physical exam: Vital signs reviewed and stable. General: Nontoxic, no distress and appears stated age. Derm: Skin warm and dry, normal coloration for ethnicity. Head: Atraumatic, normocephalic and symmetric. Eyes: EOMs intact, no lid lag, and anicteric sclera Mouth: no lip lesions, mucus membranes moist Cardiovascular: Irregularly irregular with normal S1S2, no murmur, positive posterior tibial pulses bilaterally, and cap refill < 2 seconds. Lungs: Respirations even, regular, and unlabored on room air. Lungs CTA bilaterally, no rhonchi, no rales, no wheezing, and no accessory muscle usage. Abdominal: soft, nontender to palpation, no guarding, no appreciable organomegaly Ext: ROM intact. No gross muscle atrophy, no edema, no contractures Neuro: Speech clear, face symmetrical and CN II-XII grossly intact with no noted focal neuro deficits Psych: Alert and oriented to person, place, time, and situation. Appropriate and pleasant affect. A total of 31 minutes of time were spent preparing this complex discharge summary. Pt was discharged on 07/04/22 at 5:29 PM. I reviewed the documentation as provided by the ADIS above, who is the original author of this note. I agree with the documented assessment and plan, with the following changes: none Patient Condition at Discharge: Stable Plan - Discharge Summary New Discharge Prescriptions: New Apixaban [Eliquis] 5 mg PO BID #60 tab Continue Ascorbic Acid [Vitamin C] 1,000 mg PO DAILY Glucosamine-Chondr 500-400Mg 1 tab PO DAILY Cholecalciferol [Vitamin D3 (10 Mcg = 400 Iu)] 400 unit PO DAILY Aspirin [Adult Low Dose Aspirin EC] 81 mg PO DAILY [place]-3 Fatty Acids/Fish Oil [Fish Oil 1,000 mg Softgel] 1 cap PO DAILY Discontinued Saw [place] 500 mg PO DAILY Discharge Medication List Ascorbic Acid [Vitamin C] 1,000 mg PO DAILY 08/13/16 [History] Aspirin [Adult Low Dose Aspirin EC] 81 mg PO DAILY 08/13/16 [History] Cholecalciferol [Vitamin D3 (10 Mcg = 400 Iu)] 400 unit PO DAILY 08/13/16 [History] Glucosamine-Chondr 500-400Mg 1 tab PO DAILY 08/13/16 [History] [place]-3 Fatty Acids/Fish Oil [Fish Oil 1,000 mg Softgel] 1 cap PO DAILY 08/13/16 [History] Apixaban [Eliquis] 5 mg PO BID #60 tab 07/04/22 [Rx] Follow up Appointment(s)/Referral(s): Cesar Armas MD [Primary Care Provider] - 1-2 days Harvinder Grant MD [STAFF PHYSICIAN] - 1 Week Patient Instructions/Handouts: Apixaban (By mouth), Atrial Flutter (DC) Activity/Diet/Wound Care/Special Instructions: Activity: As tolerated. Take breaks as needed. Diet: Heart healthy and carb consistent diet. Avoid salts, or foods with hidden salts such as canned or boxed foods and frozen dinners. Extra salt makes your heart work harder and traps the fluid in your body for longer. Special Instructions: Take all of your medications as directed and remember to keep all of your doctor's appointments and follow-up as needed. You are also being discharged home on a blood thinner, Eliquis. This is very important to take daily as directed until otherwise advised by your [facility]-Dr. Grant. Being that you are being placed on a blood thinner it is very important to watch for any signs of bleeding and notify your doctor immediately if you notice any bleeding. As we discussed, it is also important to remove any trip hazards such as rugs or loose extension cords from your home to prevent unnecessary falls and if you do experience a fall or head injury, it is extremely important to be evaluated by a medical provider immediately to ensure no internal bleeding. Your herbal supplement, Saw [place] was discontinued at this time as this also can affect blood clotting and may increase risk of bleeding, therefore should not be taken while on oral anticoagulant with Eliquis. Also, as discussed your Echocardiogram results were not available at time of discharge and you will need to follow-up outpatient in the office with your [facility] (Dr. Grant) to review and discuss these results. Thank you for allowing us to participate in your care, it was truly a pleasure having you for our patient!!! Discharge Disposition: HOME SELF-CARE
[2022-07-04 17:52] VITALS: BP 126/81; PULSE 94; TEMP 96.6
--- NOTE | 2022-07-04 20:39 | CA ---
Transthoracic Echo Report Name: Jesu Madsen Age: 76 Gender: M : 1945 Exam Date: 07/04/2022 07:48 Exam Location: [place] [facility] Ht (in): 68 Wt (lb): 200 Ordering Physician: Pradeep Tenorio Attending/Referring Phys: Facility Rehab Director Antonia Simon RDCS Procedure CPT: Indications: Evaluate structure and function of heart Cardiac Hx: Technical Quality: Good Contrast 1: Total Dose (mL): Contrast 2: Total Dose (mL): MEASUREMENTS (Male / Female) Normal Values 2D ECHO LV Diastolic Diameter PLAX 4.4 cm 4.2 - 5.9 / 3.9 - 5.3 cm LV Systolic Diameter PLAX 2.8 cm IVS Diastolic Thickness 1.2 cm 0.6 - 1.0 / 0.6 - 0.9 cm LVPW Diastolic Thickness 1.2 cm 0.6 - 1.0 / 0.6 - 0.9 cm LV Relative Wall Thickness 0.5 RV Internal Dim ED PLAX 3.7 cm LA Systolic Diameter LX 3.6 cm 3.0 - 4.0 / 2.7 - 3.8 cm LV Diastolic Volume MOD 4C 109.2 cm??? LV Systolic Volume MOD 4C 64.3 cm??? LV Ejection Fraction MOD 4C 41.1 % LV Diastolic Length 4C 7.8 cm LV Systolic Length 4C 6.9 cm LV Diastolic Volume MOD 2C 67.0 cm??? LV Systolic Volume MOD 2C 42.3 cm??? LV Ejection Fraction MOD 2C 36.8 % LV Diastolic Length 2C 7.5 cm LV Systolic Length 2C 6.8 cm LA Volume 58.4 cm??? 18 - 58 / 22 - 52 cm??? M-MODE Aortic Root Diameter MM 3.7 cm MV E Point Septal Separation 0.4 cm AV Cusp Separation MM 1.8 cm DOPPLER AV Peak Velocity 150.0 cm/s AV Peak Gradient 9.0 mmHg MV Area PHT 2.9 cm??? Mitral E Point Velocity 70.5 cm/s Mitral A Point Velocity 27.9 cm/s Mitral E to A Ratio 2.5 MV Deceleration Time 261.4 ms TR Peak Velocity 227.2 cm/s TR Peak Gradient 20.6 mmHg Right Ventricular Systolic Press 25.2 mmHg FINDINGS Left Ventricle Left ventricular ejection fraction is estimated at 45 %. Left ventricular cavity size normal. Mildly increased septal wall thickness. Right Ventricle Mild right ventricular dilatation. Right Atrium Normal right atrial size. Left Atrium Mildly increased left atrial area. No evidence for an atrial septal defect. Mitral Valve Structurally normal mitral valve. No mitral stenosis, regurgitation or prolapse. Aortic Valve Trileaflet aortic valve. No aortic valve stenosis or regurgitation. Tricuspid Valve Structurally normal tricuspid valve. Mild tricuspid regurgitation. Pulmonic Valve Structurally normal pulmonic valve. Mild pulmonic regurgitation. Pericardium Normal pericardium. No pericardial effusion. Aorta Normal size aortic root and proximal ascending aorta. CONCLUSIONS Fair systolic function no significant Doppler abnormality no pericardial effusion Previewed by: Dr. Swetha Wiggins MD (Electronically Signed) Final Date: 04 July 2022 20:38
== END 2022-07-04 18:58 | disposition home or self-care (01) ==
LOC: EC 10:21 → 3SCARD 14:32
PROVIDERS: ADMIT Family Medicine; ATTEND Family Medicine
DX: R07.89 Other chest pain (principal); I48.3 Typical atrial flutter; E78.5 Hyperlipidemia, unspecified; I07.1 Rheumatic tricuspid insufficiency; I37.1 Nonrheumatic pulmonary valve insufficiency; Z79.82 Long term (current) use of aspirin; Z79.899 Other long term (current) drug therapy; Z85.828 Personal history of other malignant neoplasm of skin; Z96.642 Presence of left artificial hip joint; Z82.3 Family history of stroke; Z80.42 Family history of malignant neoplasm of prostate; Z79.01 Long term (current) use of anticoagulants; Z20.822 Contact with and (suspected) exposure to COVID-19
CPT/HCPCS: 96361 ×3; 96376; 96374; 99285; 36415; 93005; 93306; 80053; 83735; 84443; 84484; 85025 ×2; 85610 ×2; 85730 ×2; 81003; 87635; 71046; G0378 ×2; J1644 ×2

== ENCOUNTER 2022-07-31 10:43 | Day surgery (SDC) | payer MEDICARE ==
[2022-07-26 11:35] VITALS: BMI 30.4
[~2022-07-31 10:43] MED LIST changes: -ACETAMINOPHEN TAB 500 MG TAB PO ONE; -DEXAMETHASONE SOD PHOSPHATE 10 MG/ML 1 ML VIAL IV ONE; -HYDROmorphone 1 MG/ML 1 ML SYRINGE IVP PRN; +LIDOCAINE 1% (10MG/ML) FOR IV START INTRADERMA PRN; -LIDOCAINE 1% 20 ML VIAL (10MG/ML) FOR IV START INTRADERMA PRN; -MELOXICAM 7.5 MG TAB PO ONE; -MIDAZOLAM 2 MG/2 ML VIAL IV PRN; -ONDANSETRON 4 MG/2 ML VIAL IVP ONE; -SCOPOLAMINE 1.5MG/72HR PATCH TRANSDERM ONE; +SODIUM CHLORIDE 0.9% 1,000 ML IV SCH; -TRANEXAMIC ACID 1,000 MG in SODIUM CHLORIDE 0.9% 100 ML IVPB ONE; -ceFAZolin 2 GM in SODIUM CHLORIDE 0.9% 100 ML IVPB ONE
[2022-07-31] MEDS ORDERED: SODIUM CHLORIDE 0.9% 500 ML 500 ML IV ONE (11:03)
[2022-07-31] MEDS ORDERED: BENZOCAINE SPRAY 1 CAN TOPICAL ONE (11:58)
[2022-07-31] MEDS ORDERED: LIDOCAINE 2% INJ 20 MG/ML (2 ML VIAL) ONE (12:00)
[2022-07-31] MEDS ORDERED: PROPOFOL 10 MG/ML 20 ML VIAL IV ONE (12:00)
[2022-07-31 12:03] VITALS: TEMP 97.4
[2022-07-31 12:25] VITALS: RESP 16
[2022-07-31 15:21] VITALS: BP 122/85; PULSE 75
--- NOTE | 2022-08-01 03:11 | ECHOT ---
TRANSESOPHAGEAL ECHOCARDIOGRAM INDICATION: Atrial flutter, rule out intracardiac thrombus. PROCEDURE NOTE: After obtaining informed consent, transesophageal echocardiogram was performed in left lateral position using an Omniplane probe. Local and IV sedation were obtained by the child development assistant. The patient tolerated the procedure well without any obvious immediate complications. FINDINGS: 1. There is no intracardiac thrombus within the left atrial appendage, left atrium, right atrium, right ventricle, or left ventricle. 2. Left ventricle has normal size and systolic function. 3. Left atrium appears mildly enlarged. 4. Right atrium and right ventricle appear enlarged. 5. Aortic root measures within normal limits. 6. Mitral valve is anatomically normal. There is zsvc-jq-rqhdmcus central mitral regurgitation noted. There is mild aortic regurgitation noted. Mild tricuspid regurgitation noted. There is no evidence of edsr-zj-yeumn shunt by color-flow Doppler or aqhpn-te-zruc shunt by agitated saline contrast study. CONCLUSIONS: 1. No intracardiac thrombus. 2. Normal LV function. 3. Ioxx-mg-vzpakwwy central mitral regurgitation. MMODL / IJN: [id number] /
--- NOTE | 2022-08-01 08:33 | PCN ---
PROCEDURE NOTE Cardioversion note. INDICATION: Atrial flutter. PROCEDURE NOTE: After ensuring the patient is adequately anticoagulated with Eliquis ruling out intracardiac thrombus with a JAVIER, the patient was cardioverted using 150 joules of synchronized DC current. The patient converted to sinus rhythm following a single shock. He will be continued on the Eliquis. JEFFREY / EDUARDON: [id number] /
== END 2022-07-31 13:50 | disposition home or self-care (01) ==
LOC: CATHCVL 10:43
PROVIDERS: ATTEND Internal Medicine Cardiovascular Disease
DX: I48.3 Typical atrial flutter (principal); Q16.5 Congenital malformation of inner ear; I08.3 Combined rheumatic disorders of mitral, aortic and tricuspid valves; Z82.49 Family history of ischemic heart disease and other diseases of the circulatory system; Z96.649 Presence of unspecified artificial hip joint; Z79.82 Long term (current) use of aspirin; Z79.899 Other long term (current) drug therapy
CPT/HCPCS: 93312; 93320; 93325; 92960; J2704; J2001

== ENCOUNTER 2022-12-19 07:26 | Day surgery (SDC) | payer MEDICARE ==
[~2022-12-19 07:26] MED LIST changes: -SODIUM CHLORIDE 0.9% 1,000 ML IV SCH
[2022-12-19 08:11] VITALS: TEMP 97.7
[2022-12-19 08:37] LABS: African American GFR (CKD) >90 (>60 ml/min/1.73 sqM); Anion Gap 6 mmol/L; Blood Urea Nitrogen 24 mg/dL (9-20); Calcium 9.4 mg/dL (8.4-10.2); Carbon Dioxide 29 mmol/L (22-30); Chloride 105 mmol/L (98-107); Glucose 98 mg/dL (74-99); Non-African American GFR(CKD) 83 (>60 ml/min/1.73 sqM); Sodium 140 mmol/L (137-145)
[2022-12-19 08:44] LABS: Potassium 4.8 mmol/L (3.5-5.1)
[2022-12-19] MEDS ORDERED: PROPOFOL 10 MG/ML 20 ML VIAL IV ONE (08:55)
[2022-12-19] MEDS ORDERED: SODIUM CHLORIDE 0.9% 1,000 ML IV SCH (09:30)
[2022-12-19 09:46] VITALS: RESP 16
[2022-12-19 10:29] VITALS: BP 113/71; PULSE 63
--- NOTE | 2023-01-01 21:22 | CE ---
CARDIAC ELECTROPHYSIOLOGY REPORT PROCEDURE PERFORMED: Cardioversion. INDICATION: Persistent atrial fibrillation. DESCRIPTION OF PROCEDURE: After obtaining informed consent, the patient underwent electrical cardioversion with 150 joules of synchronized DC current. The patient is adequately anticoagulated with Eliquis. He was sedated by the architectural draftsperson. Post cardioversion, EKG confirmed sinus rhythm. He will be followed up in my office on 01/02/2023. MMAG / SIGRID: [id number] /
== END 2022-12-19 10:42 | disposition home or self-care (01) ==
LOC: OR 07:26
PROVIDERS: ATTEND Internal Medicine Cardiovascular Disease
DX: I48.19 Other persistent atrial fibrillation (principal); I48.3 Typical atrial flutter; E78.5 Hyperlipidemia, unspecified; G47.33 Obstructive sleep apnea (adult) (pediatric); N40.0 Benign prostatic hyperplasia without lower urinary tract symptoms; Z79.899 Other long term (current) drug therapy; Z82.49 Family history of ischemic heart disease and other diseases of the circulatory system; Z79.01 Long term (current) use of anticoagulants
CPT/HCPCS: 93005; 92960; 80048; J2704

== ENCOUNTER → 2023-06-17 | Outpatient (CLI) | payer MEDICARE ==
--- NOTE | 2023-06-18 06:29 | US ---
EXAMINATION TYPE: US carotid duplex BILAT DATE OF EXAM: 06/17/2023 COMPARISON: NONE CLINICAL INDICATION: Male, 77 years old with history of R09.89 SX OF CARDIOVASC SYSTEM; Bruit TECHNIQUE: Carotid duplex ultrasound examination. Indirect Doppler criteria was utilized. FINDINGS: EXAM MEASUREMENTS: RIGHT: Peak Systolic Velocity (PSV) cm/sec ----- Right CCA: 76.7 ----- Right ICA: 72.8 ----- Right ECA: 86.4 ICA/CCA ratio: 0.95 RIGHT: End Diastole cm/sec ----- Right CCA: 26.6 ----- Right ICA: 44.2 ----- Right ECA: 20.8 LEFT: Peak Systolic Velocity (PSV) cm/sec ----- Left CCA: 71.3 ----- Left ICA: 51.6 ----- Left ECA: 78.6 ICA/CCA ratio: 0.72 LEFT: End Diastole cm/sec ----- Left CCA: 25.4 ----- Left ICA: 20.9 ----- Left ECA: 24.7 VERTEBRALS (direction of flow): Right Vertebral: Antegrade Left Vertebral: Antegrade Rhythm: Normal RESOLUTION SPECIALIST NOTES: Mild plaque bilateral bifurcations. No evidence of increased velocities IMPRESSION: No ultrasound evidence for hemodynamically significant stenosis of the bilateral visualized carotid a rterial systems. Criteria for Assigning % of Stenosis / Diameter reduction (Estimation based on the indirect measurements of the internal carotid artery velocities (ICA PSV). 1. Normal (no stenosis)=ICA PSV < 125 cm/s: ratio < 2.0: ICA EDV<40 cm/s. 2. Less than 50% stenosis=ICA PSV < 125 cm/s: ratio < 2.0: ICA EDV<40 cm/s. 3. 50 to 69% stenosis=ICA PSV of 125 to 230 cm/s: ration 2.0 ? 4.0: ICA EDV 40-100 cm/s. 4. Greater than 70% stenosis to near occlusion= ICA PSV > 230 cm/s: ratio > 4.0: ICA EDV > 100 cm/s. 5. Near occlusion= ICA PSV velocities may be low or undetectable: variable ratio and ICA EDV. 6. Total occlusion=unable to detect flow.
== END | disposition home or self-care (01) ==
LOC: RADUSWWP 15:16
PROVIDERS: ATTEND Family Medicine
DX: R09.89 Other specified symptoms and signs involving the circulatory and respiratory systems (principal)
CPT/HCPCS: 93880

== ENCOUNTER 2023-06-20 11:35 | Day surgery (SDC) | payer MEDICARE ==
[2023-06-10 12:30] VITALS: BMI 30.4
[2023-06-20] MEDS ORDERED: SODIUM CHLORIDE 0.9% 1,000 ML IV ONE (12:04)
[2023-06-20 12:36] LABS: Basophils % (A) 0 %; Eosinophils # (A) 0.1 k/uL (0-0.7); Eosinophils % (A) 2 %; HGB 17.4 gm/dL (13.0-17.5); Lymphocytes # (A) 1.9 k/uL (1.0-4.8); Lymphocytes % (A) 32 %; MCH 32.3 pg (25.0-35.0); MCHC 34.1 g/dL (31.0-37.0); MCV 94.9 fL (80.0-100.0); Mean Platelet Volume 7.8; Monocytes # (A) 0.4 k/uL (0-1.0); Monocytes % (A) 7 %; Neutrophils # (A) 3.5 k/uL (1.3-7.7); Neutrophils % (A) 57 %; Platelet Count 180 k/uL (150-450); RBC 5.38 m/uL (4.30-5.90); RDW 12.3 % (11.5-15.5); WBC 6.1 k/uL (3.8-10.6)
[2023-06-20 12:48] LABS: ALT 32 U/L (4-49); AST 42 U/L (17-59); African American GFR (CKD) 88 (>60 ml/min/1.73 sqM); Albumin 4.4 g/dL (3.5-5.0); Alkaline Phosphatase 70 U/L (38-126); Anion Gap 8 mmol/L; Blood Urea Nitrogen 20 mg/dL (9-20); Calcium 9.6 mg/dL (8.4-10.2); Carbon Dioxide 25 mmol/L (22-30); Chloride 105 mmol/L (98-107); Glucose 84 mg/dL (74-99); Non-African American GFR(CKD) 76 (>60 ml/min/1.73 sqM); Potassium 4.5 mmol/L (3.5-5.1); Sodium 138 mmol/L (137-145)
[2023-06-20] MEDS ORDERED: LIDOCAINE 1% INJ 10MG/ML (20 ML MDV) ONE ×2 (13:37→13:50)
[2023-06-20] MEDS ORDERED: MIDAZOLAM 2 MG/2 ML VIAL ONE (13:37)
[2023-06-20] MEDS ORDERED: SUCCINYLCHOLINE CHLORIDE 200 MG/10 ML VIAL IV ONE (13:37)
[2023-06-20] MEDS ORDERED: PROPOFOL 10 MG/ML 20 ML VIAL IV ONE (13:37)
[2023-06-20] MEDS ORDERED: PHENYLEPHRINE-0.9% NACL SYG 1,000 MCG/10 ML SYRINGE ONE (13:37)
[2023-06-20] MEDS ORDERED: ROCURONIUM 10 MG/ML (5 ML VIAL) IV ONE (13:37)
[2023-06-20] MEDS ORDERED: NEOSTIGMINE 1 MG/ML 10 ML VIAL ONE (13:37)
[2023-06-20] MEDS ORDERED: fentaNYL (PF) 50 MCG/ML 2 ML AMP ONE (13:37)
[2023-06-20] MEDS ORDERED: GLYCOPYRROLATE 0.2 MG/ML 2 ML VIAL ONE (13:37)
[2023-06-20] MEDS ORDERED: LIDOCAINE 1% INJ 10MG/ML (20 ML MDV) SQ ONE (13:45)
[2023-06-20] MEDS ORDERED: HEPARIN SODIUM (1,000 UNIT/ML) 1,000 UNIT in SODIUM CHLORIDE 0.9% 1,000 ML IRRIGATION ONE (15:15)
[2023-06-20] MEDS ORDERED: ACETAMINOPHEN TAB 325 MG TAB PO PRN (16:33)
[2023-06-20] MEDS ORDERED: ACETAMINOPHEN IV (For NPO) 1,000 MG in EMPTY BAG 1 BAG IVPB ONE (16:33)
--- NOTE | 2023-06-20 16:40 | P.EPPROC ---
- EP Procedure Note Electrophysiology Procedure Note: Diagnosis Typical atrial flutter, symptomatic Procedures Diagnoses EP study and successful relief dizzy ablation for typical atrial flutter with termination during RF ablation Isthmus conduction time 160 ms, bidirectional block with differential pacing Widely split potentials of greater than 120 ms along the RF line Details Patient was brought to the EP lab in a fasting state. Written informed consent was obtained prior to the procedure. Venous sheaths were placed in the right left femoral veins A long sheath was placed Diagnostic catheters were placed. Intracardiac echo catheter was placed There was mild pericarditis noted No intracardiac mass or thrombus in the left atrial appendage Normal LV and RV size and function 3-D electro-anatomic mapping was performed the patient along isthmus. Tricuspid valve His bundle eustachian ridge were tagged Tachycardia cycle length 232 ms, concentric activation in the coronary sinus poles Mapping of the tachycardia was performed with entrainment mapping Isthmus dependency was proven Thereafter RF ablation was applied in the isthmus and termination of tachycardia occurred Following that the line was completed in sinus rhythm A complete line of block was made Differential pacing was performed and bidirectional block was proven Isthmus conduction time than 160 ms Widely split potentials of 120 ms all longline, uniform split duration all along the line Following that, at diagnostic EP study was performed in sinus rhythm Sinus cycle length 773 ms normal PA interval, QRS 101 ms and QT interval 358 ms AH 78 ms and HV interval 41 ms Sinus node recovery times were 1005, 980 and 1070 ms. Corrected sinus node recovery times abnormal VA Wenckebach block 340 ms AV node Wenckebach block 340 ms No delta waves, no slow pathway conduction Parahisian pacing revealed jaison response All sheaths were removed. Vascular closure device applied successfully. Patient extubated and transferred to recovery Intracardiac echo at the end of the procedure did not reveal any new pericardial effusion
[2023-06-20] MEDS: APIXABAN 5 MG TAB PO SCH (19:47)
[2023-06-20] MEDS: LACTATED RINGERS 1,000 ML IV SCH (21:04)
[2023-06-20] MEDS: SODIUM CHLORIDE 0.9% 1,000 ML IV SCH (21:04)
[2023-06-21 03:42] VITALS: RESP 16
[2023-06-21] MEDS: LACTATED RINGERS 1,000 ML IV SCH (05:55)
[2023-06-21] MEDS: SODIUM CHLORIDE 0.9% 1,000 ML IV SCH (05:55)
[2023-06-21] MEDS: APIXABAN 5 MG TAB PO SCH (08:04)
[2023-06-21 08:17] VITALS: BP 100/66; PULSE 75; TEMP 97.5
--- NOTE | 2023-06-21 13:21 | P.DS ---
Providers Attending physician: Aubrey Chin Primary care physician: [facility] Course: This is a 77-year-old male who underwent atrial flutter ablation with Dr. Chin. Patient is doing well post procedure with no immediate competitions. However, the patient developed atrial fibrillation and is maintaining atrial fibrillation with controlled ventricular rate at rest. With ambulation this morning the patient's heart rate did increase to the 140s. He denies any palpitations, dizziness, or lightheadedness. He denies chest pain or pressure. He denies shortness of breath. He was started on metoprolol. Atrial fibrillation ablation in early [address] Chin. The patient was deemed stable for discharge home today. Please see EMR for further hospital course details Discharge diagnosis Typical atrial flutter, symptomatic, status post atrial flutter ablation New onset atrial fibrillation with controlled ventricular rate Nurse practitioner note has been reviewed by physician. Signing provider agrees with the documented findings, assessment, and plan of care. Plan - Discharge Summary Discharge Rx Participant: No New Discharge Prescriptions: New Metoprolol Succinate (ER) [Toprol XL] 25 mg PO DAILY #90 tab Continue Ascorbic Acid [Vitamin C] 1,000 mg PO DAILY Cholecalciferol [Vitamin D3 (10 Mcg = 400 Iu)] 400 unit PO DAILY Apixaban [Eliquis] 5 mg PO BID #60 tab Glucosam/Dereck-Msm1/C/Lokesh/Bosw [Glucosamine-Chondroitin Tablet] 1 each PO DAILY Turmeric Root Extract [Turmeric] 1,000 mg PO DAILY Cinnamon Bark [Cinnamon] 1,000 mg PO DAILY Discharge Medication List Ascorbic Acid [Vitamin C] 1,000 mg PO DAILY 08/13/16 [History] Cholecalciferol [Vitamin D3 (10 Mcg = 400 Iu)] 400 unit PO DAILY 08/13/16 [History] Apixaban [Eliquis] 5 mg PO BID #60 tab 07/04/22 [Rx] Cinnamon Bark [Cinnamon] 1,000 mg PO DAILY 07/26/22 [History] Glucosam/Dereck-Msm1/C/Lokesh/Bosw [Glucosamine-Chondroitin Tablet] 1 each PO DAILY 07/26/22 [History] Turmeric Root Extract [Turmeric] 1,000 mg PO DAILY 07/26/22 [History] Metoprolol Succinate (ER) [Toprol XL] 25 mg PO DAILY #90 tab 06/21/23 [Rx] Follow up Appointment(s)/Referral(s): Harvinder Grant MD [STAFF PHYSICIAN] - 07/03/23 8:15 am Patient Instructions/Handouts: Cardiac Ablation (DC) Activity/Diet/Wound Care/Special Instructions: Post EP study - Ablation instructions 1. Keep access sites dry for 2 days. 2. No heavy lifting or straining for 2 days. 3. Avoid bending the hips repeatedly for 2 days. 4. You may go up and down stairs slowly Call if the following is noted 1. Bleeding, increasing swelling or pain at the access sites. 2. Increasing chest discomfort, especially upon taking a deep breath. 3. Increasing shortness of breath, at rest or with exertion. 4. Undue cough / phlegm 5. Difficulty or pain while swallowing. 6. Pain or change in color in the extremities. 7. Fever, chills, rigors. 8. Increasing headache or neurologic symptoms. 9. Dizziness, fainting, palpitations Continue ELIQUIS Discharge Disposition: HOME SELF-CARE
== END 2023-06-21 11:46 | disposition home or self-care (01) ==
LOC: CATHEP 11:35 → 3SCARD 16:02 → CATHEP 06-21 11:46
PROVIDERS: ATTEND Internal Medicine Clinical Cardiac Electrophysiology
DX: I48.3 Typical atrial flutter (principal); G47.33 Obstructive sleep apnea (adult) (pediatric); I48.91 Unspecified atrial fibrillation; Z85.828 Personal history of other malignant neoplasm of skin; Z82.49 Family history of ischemic heart disease and other diseases of the circulatory system; Z79.01 Long term (current) use of anticoagulants; Z79.899 Other long term (current) drug therapy
CPT/HCPCS: 93662; 93653; 86900; 86901; 80053; 84443; 85025; 86850; C1759; C1894; C1769; C1760; C1730; C1893; C1732; J2250; J0330; J2710; J2001; J3010; J1644; J2704; J2371